=== PATIENT | male | born 1990 | race Two or more races ===

== ENCOUNTER 2023-01-21 17:41 | Emergency (ER) | payer MEDICAID ==
[~2023-01-21] VITALS: Ht 177.8 cm; Wt 92.0 kg
[2023-01-21 18:00] VITALS: BP 140/94; PULSE 90; RESP 18; TEMP 97.9; O2SAT 96
[2023-01-21] MEDS ORDERED: CYCL-611 PO (21:18)
[2023-01-21] MEDS ORDERED: IBUP-1454 PO (21:18)
[2023-01-21] MEDS ORDERED: DexAMETHasone SOD PHOS 10MG/1ML VIAL INJ IM ONE (21:30)
[2023-01-21] MEDS ORDERED: KETOROLAC TROMETH 60MG/2ML VIAL IM ONE (21:30)
[2023-01-21] MEDS ORDERED: HYDROcodone-ACET 5/325MG TAB PO ONE (21:30)
== END 2023-01-21 22:00 | disposition home or self-care (01) ==
LOC: ER 17:41
DX: S33.5XXA Sprain of ligaments of lumbar spine, initial encounter (principal); X50.1XXA Overexertion from prolonged static or awkward postures, initial encounter; Y93.89 Activity, other specified; Y92.89 Other specified places as the place of occurrence of the external cause; Y99.8 Other external cause status
CPT/HCPCS: 72131; 96372; 99284; J1100; J1885